=== PATIENT | male | born 1965 | race Caucasian/White ===

== ENCOUNTER → 2017-05-06 | Outpatient (CLI) | payer MEDICAID ==
[~2017-05-06] MED LIST: ACETAMIN W/CODE1 TAB PO; ALBUTEROL2 PUFFS/17 IN; AMOXIL500 MG PO; CIPRO 500MG TA500 MG PO; FLEXERIL10 MG PO; HYDROCODONE-APA1 TA1 PO; KEFLEX 500MG.500 MG PO; LORTAB 5/500 501 TAB PO; MEDROL 4MG. DOSE4 MG PO; MINOCYCLINE 10100 MG PO; MUCINEX D 600 M1 TER PO; NAPROSYN 500MG500 MG PO; NAPROSYN500 M1 PO; NAPROXEN375 MG PO; NOMEDS; NORCO 325 MG-51 TAB PO; PENICILLIN-VK500 MG PO; PREDNISONE 20MG20 MG PO; PROTONIX 40MG T40 MG PO; ROBAXIN-750750 MG PO; TESSALON PERLE100 MG PO; TIMOLOL MALEATE10 ML OP; ULTRAM50 MG PO
[2017-05-06 14:54] LABS: AMPHETAMINES/METAMPHETAMINES NEGATIVE ng/mL (<1000)
== END ==
LOC: LAB 13:29
PROVIDERS: Emergency Medicine
DX: M54.5 Low back pain (principal)

== ENCOUNTER → 2017-06-03 | Outpatient (CLI) | payer MEDICAID ==
[2017-06-03 17:33] LABS: AMPHETAMINES/METAMPHETAMINES NEGATIVE ng/mL (<1000)
[2017-06-12 09:38] LABS: Codeine Negative (Cutoff=100); Hydrocodone Positive (.); Hydromorphone Negative (Cutoff=100); Morphine Negative (Cutoff=100); Opiates Positive (.)
== END ==
LOC: LAB 17:07
PROVIDERS: Emergency Medicine
DX: Z79.899 Other long term (current) drug therapy (principal)

== ENCOUNTER → 2017-06-26 | Outpatient (CLI) | payer MEDICAID ==
--- NOTE | 2017-06-26 16:10 | RADIOLOGY REPORT PS360 ---
US EXTREMITIES LT LIMITED HISTORY: SWELLING LEFT ANTERIOR THIGH, ORDERING PHYSICIAN: Wong Guerrero MD PATIENT AGE: 52 years COMPARISON: None FINDINGS: There is a heterogeneous area of echogenicity in the subcutaneous region of the left hip laterally measuring 3 x 2.8 x 1 cm. This has a lacy appearance and is likely related to a lipoma. No cystic masses evident. IMPRESSION: Probable lipoma left hip corresponding to the palpable area of interest
== END ==
LOC: RAD 06-23 14:15
DX: R22.42 Localized swelling, mass and lump, left lower limb (principal)

== ENCOUNTER → 2017-07-21 | Outpatient (CLI) | payer MEDICAID ==
[2017-07-21 15:45] LABS: HEMOGLOBIN 14.2 g/dL (14.1-18.0); LYMPH % 19.9 % (10-50)
[2017-07-21 16:49] LABS: BUN 9 mg/dL (7-18)
[2017-07-21 16:50] LABS: GFR (ESTIMATED) 118 ML/MIN (>60)
== END ==
LOC: LAB 15:25
PROVIDERS: Surgery
DX: D17.24 Benign lipomatous neoplasm of skin and subcutaneous tissue of left leg (principal); Z01.812 Encounter for preprocedural laboratory examination

== ENCOUNTER 2017-08-06 08:49 | Day surgery (SDC) | payer MEDICAID ==
[~2017-08-06] VITALS: Ht 180.3 cm; Wt 60.3 kg
--- NOTE | 2017-08-06 11:35 | Anesthesia Record ---
Anesthesia Record Part I Total IV fluids: 1200 EBL (ml): 0 Urine Output: 0 B/P: 147/70 % SaO2: 97 Pulse: 80 Resps: 12 Temp: 98.6 Patient is: Awake, Stable Stable to PACU at: 1130 at 1134
--- NOTE | 2017-08-06 11:35 | Anesthesia Record ---
Anesthesia Record Part II Discharge time: 1200 Destination: Same day surgery PACU nurse assessment review? Yes Patient is: Awake, Stable Anesthesia complications? No at 1133
--- NOTE | 2017-08-06 11:36 | Operative Note ---
Surgeon/Diagnoses Surgeon/[employer](s) Date of procedure: 08/06/17 Surgeon: Wong Guerrero Diagnoses Pre-op diagnosis: LEFT anterior thigh lipoma Post-op diagnosis Same Procedure Procedure Procedure: Excision of LEFT anterior thigh lipoma (excisional length 6.0 cm) with intermediate complex to closure Indications: DARWIN RABAGO is a 52 year-old Male with a history of swelling knot on the anterior proximal LEFT thigh. Patient has some chronic pain in his LEFT hip and he was wondering if this may be the etiology. He was sent for surgical excision. I had him undergo ultrasound which was consistent with lipoma. I informed the patient is unlikely that his pain in the LEFT hip area is secondary to this lesion. Options were discussed and plan was made for excision. This was to be done under anesthesia. Findings: Well-circumscribed yet irregular lobular fatty lesion consistent with lipoma. Procedure Description: Consent was obtained and patient taken the operating room. Gen. anesthesia was induced via LMA. Area was prepped and draped in standard surgical fashion. The lesion was marked with a skin marker for planned incision. Approximately 6 cm incision was made as the lesion was somewhat elongated. Dissection was carried down through full-thickness of skin and superficial subcutaneous tissues where a lipomatous appearing tissue was encountered. Using mostly Metzenbaum dissection utilizing both blunt and sharp technique lobulated but well-circumscribed fatty tissue was dissected free from surrounding structures. This was rather superficial in location and therefore the overlying skin was excised as well as a skin ellipse with the underlying attached lipoma. This was sent off as a specimen. Local anesthetic was infiltrated. There was good hemostasis. Subdermal tissues were reapproximated with several interrupted 3-0 Vicryl sutures. Skin was closed with 4-0 Monocryl in a 60 to fashion. Clean dry sterile dressings were applied. EBL (ml): 10 Anesthesia: Gen. via LMA Specimens: Lipoma Disposition Disposition: To PACU at 1138
[2017-08-06 14:46] VITALS: BP 116/68
== END 2017-08-06 12:47 | disposition home or self-care (01) ==
LOC: SDC 08:49
PROVIDERS: Surgery
PROC: 0HBJXZZ Excision of Left Upper Leg Skin, External Approach (ICD-10-PCS; 2017-08-06)
PROC: 0HQJXZZ Repair Left Upper Leg Skin, External Approach (ICD-10-PCS; principal; 2017-08-06 10:15)
DX: D17.24 Benign lipomatous neoplasm of skin and subcutaneous tissue of left leg (principal); R20.8 Other disturbances of skin sensation
CPT/HCPCS: J2405